=== PATIENT | female | born 1995 | race Caucasian/White ===

== ENCOUNTER 2016-07-24 14:57 | Outpatient (CLI) | payer OTHER ==
[~2016-07-24 14:57] MED LIST: COLACE 100MG C100 MG PO
== END 2016-07-24 16:36 | disposition home or self-care (01) ==
LOC: GENOP 14:57
DX: Z34.93 Encounter for supervision of normal pregnancy, unspecified, third trimester (principal); Z3A.36 36 weeks gestation of pregnancy
CPT/HCPCS: 81001; 83518; G0463

== ENCOUNTER 2016-08-02 03:09 | Inpatient (IN) | payer OTHER ==
[~2016-08-02] VITALS: Ht 152.4 cm; Wt 83.5 kg
[2016-08-02 03:59] LABS: HEMOGLOBIN 9.3 gm/dl (12.3-15.3); RED BLOOD COUNT 3.95 M/UL (4.00-5.10); WHITE BLOOD COUNT 9.3 K/UL (4.5-11.0)
[2016-08-03 03:12] LABS: HEMOGLOBIN 8.6 gm/dl (12.3-15.3)
[2016-08-03] MEDS ORDERED: NORCO 5-325 TA1 EACH PO (11:02)
== END 2016-08-03 14:40 | disposition home or self-care (01) | DRG 775 ==
LOC: GENOP 03:09 → OB 03:28
PROVIDERS: Obstetrics & Gynecology; ADMIT Obstetrics & Gynecology
PROC: 10E0XZZ Delivery of Products of Conception, External Approach (ICD-10-PCS; principal; 2016-08-02)
PROC: 3E0234Z Introduction of Serum, Toxoid and Vaccine into Muscle, Percutaneous Approach (ICD-10-PCS; 2016-08-03)
DX: O80 Encounter for full-term uncomplicated delivery (principal); Z3A.38 38 weeks gestation of pregnancy; Z37.0 Single live birth; R87.811 Vaginal high risk human papillomavirus (HPV) DNA test positive; Z23 Encounter for immunization; Z91.040 Latex allergy status; Z80.1 Family history of malignant neoplasm of trachea, bronchus and lung; Z80.9 Family history of malignant neoplasm, unspecified; Z83.3 Family history of diabetes mellitus; Z82.49 Family history of ischemic heart disease and other diseases of the circulatory system; Z81.8 Family history of other mental and behavioral disorders
CPT/HCPCS: 36415; 51702; 82800; 85014; 85018; 85025; 90715; J2590; J2795; J3010; J3430; J7120

== ENCOUNTER 2016-09-18 17:25 | Emergency (ER) | payer OTHER ==
[~2016-09-18 17:25] MED LIST changes: +NORCO 5-325 TA1 EACH PO
[2016-09-18 19:23] LABS: RED BLOOD COUNT 4.37 M/UL (4.00-5.10); WHITE BLOOD COUNT 6.9 K/UL (4.5-11.0)
[2016-09-18 19:43] LABS: BUN/CREATININE RATIO 10 (0-10)
== END 2016-09-18 20:12 | disposition home or self-care (01) ==
LOC: ER1 17:25
PROVIDERS: Physician Assistant
DX: O72.1 Other immediate postpartum hemorrhage (principal); O90.81 Anemia of the puerperium; D50.0 Iron deficiency anemia secondary to blood loss (chronic); Z91.040 Latex allergy status
CPT/HCPCS: 36415; 80053; 85025; 99284